=== PATIENT | male | born 1945 | race Caucasian/White ===

== ENCOUNTER 2025-06-24 08:41 | Inpatient (IN) | payer MEDICARE ==
[~2025-06-24] VITALS: Ht 175.3 cm; Wt 70.0 kg
[2025-06-24] MEDS ORDERED: Lidocaine 2% Jelly Uro-Jet UR ONE (08:55)
[2025-06-24 09:39] LABS: Source, Urine Foley catheter
[2025-06-24 09:45] LABS: Color, Urine Amber (P-Yellow); Glucose Qualitative, Urine Neg (Neg); Ketones, Urine Neg (Neg); Leukocyte Esterase, Urine 3+ (Neg); Protein, Urine 2+ (Neg); Specific Gravity, Urine 1.015 (1.003-1.022); Urobilinogen, Urine 2+ (Normal)
[2025-06-24] MEDS ORDERED: NS 1,000 ML IV SCH ×2 (09:45→18:00)
[2025-06-24 09:51] LABS: Bilirubin, Urine 2+ (Neg)
[2025-06-24 09:53] LABS: Red Blood Cells, Urine 25-50 /hpf (0-2); White Blood Cells, Urine 25-50 /hpf (0-5)
[2025-06-24 10:05] LABS: Hematocrit 37.1 % (37.0-53.0); Hemoglobin 12.8 g/dL (13.5-17.5); Mean Corpuscular HGB Conc 34.5 g/dL (31.5-36.5); Mean Corpuscular Volume 84 fL (80-100); NRBC ABSOLUTE 0.00 K/mm3 (0.00-0.02); NRBC Auto 0.0 /100 WBC (0.0-0.2); Platelet Count 277 K/mm3 (150-400); RDW Coefficient Variation 14.6 % (11.7-14.2); RDW Standard Deviation 44.8 fL (35.1-46.3)
[2025-06-24 10:22] LABS: BASOPHILS ABSOLUTE MAN 0.00 K/mm3 (0.00-0.23); BASOPHILS PERCENT MAN 0 % (0-2); EOSINOPHILS ABSOLUTE MAN 0.00 K/mm3 (0.00-0.68); EOSINOPHILS PERCENT MAN 0 % (0-6); LYMPHOCYTES ABSOLUTE MAN 0.99 K/mm3 (0.84-5.20); LYMPHOCYTES PERCENT MAN 5 % (21-46); MONOCYTES ABSOLUTE MAN 0.79 K/mm3 (0.16-1.47); MONOCYTES PERCENT MAN 4 % (4-13); NEUTROPHILS ABSOLUTE MAN 18.13 K/mm3 (1.96-9.15); SEG NEUTROPHILS PERCENT MAN 91 % (41-73)
[2025-06-24 10:29] LABS: Alanine Aminotransfer (ALT/SGP 27.0 U/L (12-78); Albumin, Blood 3.0 g/dL (3.4-5.0); Albumin/Globulin Ratio 0.6 (0.8-1.8); Anion Gap 11.0 mmol/L (3-11); Aspartate Aminotrans (AST/SGOT 48.0 U/L (12-37); Bilirubin, Total 0.5 mg/dL (0.1-1.0); Blood Urea Nitrogen 25.0 mg/dL (8-24); CO2, Blood 23.0 mmol/L (21-32); Calcium, Blood 11.2 mg/dL (8.5-10.1); Chloride, Blood 91.0 mmol/L (98-108); Creatinine, Blood 1.22 mg/dL (0.60-1.20); Globulin, Blood 4.7 g/dL (2.2-4.0); Glucose, Blood 141.0 mg/dL (70-99); Magnesium, Blood 1.8 mg/dL (1.6-2.4); Potassium, Blood 4.4 mmol/L (3.5-5.5); Sodium, Blood 121.0 mmol/L (136-145); Total Protein, Blood 7.7 g/dL (6.4-8.2)
[2025-06-24] MEDS ORDERED: CefTRIAXone Sodium 1,000 MG in NS 100 ML IV ONE (10:40)
[2025-06-24] MEDS ORDERED: NS 1,000 ML IV STA (11:52)
[2025-06-24] MEDS ORDERED: FLU VACC TS2025(65UP)/MF59C/PF 45 MCG/0.5 ML SYRINGE IM SCH (11:55)
[2025-06-24 14:26] LABS: Prostate Specific Antigen 3.670 ng/mL (0.000-4.000)
[2025-06-24 14:59] VITALS: BP 123/67
[2025-06-24] MEDS ORDERED: Ondansetron HCl 2 MG / ML 2ML Vial IV PRN (15:40)
[2025-06-24] MEDS ORDERED: OxyCODONE 5 mg/Acetamin 325 mg TABLET PO PRN (15:40)
[2025-06-24 19:37] VITALS: BP 109/58
[2025-06-24] MEDS ORDERED: Lactobacil 2-S.Thermo-Bifido 1 1 Cap PO SCH (21:00)
[2025-06-25 03:26] VITALS: BP 123/69
--- NOTE | 2025-06-25 04:50 | NUR ---
SHIFT SUMMARY: PT RESTED OVER NIGHT. NO ACUTE EVENTS. NO PAIN MEDICATION REQUESTED. VITALS STABLE.
[2025-06-25 05:12] LABS: Hematocrit 31.1 % (37.0-53.0); Hemoglobin 10.7 g/dL (13.5-17.5); Mean Corpuscular HGB Conc 34.4 g/dL (31.5-36.5); Mean Corpuscular Volume 86 fL (80-100); NRBC ABSOLUTE 0.00 K/mm3 (0.00-0.02); NRBC Auto 0.0 /100 WBC (0.0-0.2); Platelet Count 237 K/mm3 (150-400); RDW Coefficient Variation 15.4 % (11.7-14.2); RDW Standard Deviation 48.0 fL (35.1-46.3)
[2025-06-25 06:11] LABS: Anion Gap 8.0 mmol/L (3-11); Blood Urea Nitrogen 17.0 mg/dL (8-24); CO2, Blood 23.0 mmol/L (21-32); Calcium, Blood 9.9 mg/dL (8.5-10.1); Chloride, Blood 107.0 mmol/L (98-108); Creatinine, Blood 0.78 mg/dL (0.60-1.20); Glucose, Blood 97.0 mg/dL (70-99); Potassium, Blood 3.6 mmol/L (3.5-5.5)
[2025-06-25 06:15] LABS: Sodium, Blood 134.0 mmol/L (136-145)
[2025-06-25 07:13] VITALS: BP 117/65
[2025-06-25] MEDS ORDERED: Enoxaparin 40 MG/0.4 ML SYR SC SCH (09:00)
[2025-06-25] MEDS ORDERED: Polyethylene Glycol 3350 17 gm PO SCH (09:00)
--- NOTE | 2025-06-25 09:34 | NUR ---
DR FONG ROUNDED, POLST SIGNED BY PATIENT, PATIENT DNR, PALLIATIVE CARE CONSULT IN, WAITING FOR TO DISCUSS FURTHER OPTIONS
[2025-06-25] MEDS ORDERED: CefTRIAXone Sodium 1,000 MG in NS 100 ML IV SCH (11:00)
[2025-06-25] MEDS ORDERED: CEFU500T30 PO (12:58)
[2025-06-25] MEDS ORDERED: DOC250 PO (12:59)
[2025-06-25] MEDS ORDERED: VISBIOME 112.51 EACH PO (13:00)
[2025-06-25] MEDS ORDERED: ONDA4ODT MM (13:01)
[2025-06-25] MEDS ORDERED: Percocet 5-3251 EACH PO (13:02)
[2025-06-25] MEDS ORDERED: MIRALAX17 GM PO (13:03)
--- NOTE | 2025-06-25 13:49 | NUR ---
1330 DISCAHRGED HOME, INSTRUCTIONS GIVEN TO PATIENT AND TWO DAUGHTERS, ALL STATED UNDERSTANDING AND DENIED FURTHER QUESTIONS, CATHETER BAG CARE REVEIWED WITH FAMILY AND CATH CARE. HOSPICE TO BE FOLLOWING UP IN THE HOME ON FRIDAY, ALL PLEASANT TO CARE
== END 2025-06-25 13:59 | disposition hospice, home (50) | DRG 872 ==
LOC: ER 08:41 → MEDS 11:51 → ENPENDDIS 06-25 12:45 → MEDS 06-25 13:59
PROVIDERS: Emergency Medicine; ADMIT Internal Medicine
PROC: 0T9B70Z Drainage of Bladder with Drainage Device, Via Natural or Artificial Opening (ICD-10-PCS; principal; 2025-06-24)
PROC: 3E03329 Introduction of Other Anti-infective into Peripheral Vein, Percutaneous Approach (ICD-10-PCS; 2025-06-24)
PROC: 3E02340 Introduction of Influenza Vaccine into Muscle, Percutaneous Approach (ICD-10-PCS; 2025-06-24)
DX: A41.9 Sepsis, unspecified organism (principal); N39.0 Urinary tract infection, site not specified; E87.1 Hypo-osmolality and hyponatremia; C79.51 Secondary malignant neoplasm of bone; E87.20 Acidosis, unspecified; N17.9 Acute kidney failure, unspecified; R65.20 Severe sepsis without septic shock; F17.210 Nicotine dependence, cigarettes, uncomplicated; Z66 Do not resuscitate; N13.9 Obstructive and reflux uropathy, unspecified; R33.8 Other retention of urine; C76.3 Malignant neoplasm of pelvis; R59.1 Generalized enlarged lymph nodes; M79.605 Pain in left leg; R63.4 Abnormal weight loss; Z68.20 Body mass index [BMI] 20.0-20.9, adult; Z23 Encounter for immunization; Z79.899 Other long term (current) drug therapy
CPT/HCPCS: 36415; 51702; 51798; 74177; 80048; 80053; 81001; 82378; 83605; 83735; 84153; 85025; 85027; 87086; 96374-59; 99285-25; A9270; J0696; J1650; J7030; Q9967